=== PATIENT | male | born 1940 | race Caucasian/White ===

== ENCOUNTER 2016-10-08 12:11 | Inpatient (IN) | payer MEDICARE, BC ==
[~2016-10-08] VITALS: Ht 172.7 cm; Wt 75.4 kg
--- NOTE | 2016-10-10 11:51 | HP ---
ADMIT: 10/08/2016 RM/LOC: 415 [facility] MR#: [id number] [facility]#: [id number] [address] [facility] [address] [place], [place] [address] DUDLEYMELIA MORGAN[address] [facility] [address] [place] [address] History and Physical SEX: M AGE: 76 : 1940 DATE OF SERVICE: CHIEF COMPLAINT AND HISTORY OF PRESENT ILLNESS: Family brought him to our office this morning earlier in the day. His had discovered him out of bed on the floor. He had fallen getting up to bed. Since that time, he has been nonverbal, also described him as being weak. He was incontinent of urine. No fever. Apparently, he was at his usual state of health, admittedly not good, but usual state of health yesterday. I was concerned that he could have sustained a stroke since he was nonverbal for me, so he was taken to the emergency room where he was triaged to the stroke protocol. Dr. Gómez was kind enough to see him. I talked with him over the phone before and after this ER evaluation. The ER evaluation did not demonstrate any evidence of new infarct on his CT scan. He scored 4 on his stroke scale. Metabolic evaluation also did not display an obvious source of all this. He is diabetic. His blood sugar was 178. He was newly incontinent. His UA did not suggest any infection. He has had aspiration pneumonia in July. His chest x-ray did not show any evidence of pneumonia. He was admitted for acute mental status change. Since I saw him at noon and saw him again at about 5:00 p.m., his speech has improved significantly though he still has some comprehension difficulties with simple questions, and his speech is limited to single words and seems to still have some word-finding issues. PAST MEDICAL HISTORY: He has Parkinson's with dementia, type 2 diabetes, hypertension, hyperlipidemia. He was hospitalized for aspiration pneumonia and TIA, 2 separate hospitalizations last year at [facility]. After the aspiration pneumonia, he came here to rehab. He was at [facility] for roughly a month, and he is now with his who is his main caregiver. His brother helps out on some occasions. He is able to normally dress himself. She helps him with toileting and meals. He has a walker but does not consistently use it and does fall on occasion. MEDICATIONS: 1. Lantus 12 units at bedtime. 2. Plavix 75 mg daily. 3. Metformin ER 500 mg b.i.d. 4. Bisoprolol/HCTZ 10/6.25 every day. 5. Amlodipine/benazepril 10/40, one daily. 6. Simvastatin 20 mg at bedtime. 7. Aspirin 325 mg at bedtime. 8. Carbidopa/levodopa 25/100, three times daily. 9. Carbidopa/levodopa ER 25/100, one at bedtime. PRN medications include: 1. Claritin. 2. Flonase. 3. Loperamide. ALLERGIES: NONE THAT WE KNOW OF. ADMIT: 10/08/2016 RM/LOC: 415 [facility] MR#: [id number] [id number] [place], [place] [address]MELIA [address] [place] [address] History and Physical SEX: M AGE: 76 : 1940 SOCIAL HISTORY: As discussed above. FAMILY HISTORY: Unknown. REVIEW OF SYSTEMS: Unable from the patient, primarily those things we have noted in the HPI. No acute ear, nose, or throat issues that his can ascertain. Also, no vomiting. He tends to go between diarrhea and constipation. He has had normally good urine control. He does indicate to me he is not in pain anywhere. He has not had treatment for depression or anxiety. PHYSICAL EXAMINATION: GENERAL: Reveals an elderly male who appears his stated age. He is comfortable in the bed. He will, on request, sit up on the side of the bed under his own power. We have not attempted to ambulate him. He moves all extremities equally and there is no facial asymmetry. No apparent sensory difficulties on limited exam. He follows simple commands. He will answer simple questions yes or no, but he cannot identify simple objects such as a watch or my hand, and he cannot say his name. Speech is not obviously dysarthric, and he did swallow one sip of water without coughing or choking. VITAL SIGNS: Temp 96.9, pulse 90, respirations 16, BP 166/73. Rhythm is sinus with PVCs, possible old anteroseptal infarct. ENT: Teeth are in poor repair. No oral lesions are noted on limited exam. Hearing is satisfactory. There is no nasal discharge. EYES: Pupils equal and reactive to light. NECK: No masses. No tenderness. No bruits. HEART: Regular rhythm with occasional premature contraction. I do not hear murmurs. LUNGS: Clear anterior and posterior with normal respiratory effort. ABDOMEN: Soft. No masses or tenderness. No guarding or rebound. GENITALIA: Unremarkable to cursory exam. RECTAL: Not performed. EXTREMITIES: Upper extremities grossly normal but for increased rigidity. Lower extremities also increased rigidity. No edema in his lower extremities, and I can feel pulses in his feet. SKIN: No rashes. NEURO: As above plus the rigidity of his upper and lower extremities consistent with his Parkinson's. PSYCH: He is calm, no agitated behaviors, reasonably cooperative. IMPRESSION: 1. Recent acute mental status change, question transient ischemic attack or cerebrovascular accident or an encephalopathy from acute illness or possibly a posttraumatic head injury with his recent fall reported this morning. 2. Chronic Parkinson. ADMIT: 10/08/2016 RM/LOC: 415 [facility] MR#: [id number] [address] [address] MELIA DIAZ [address] [address] History and Physical SEX: M AGE: 76 : 1940 3. Chronic dementia. 4. Type 2 diabetes. 5. Chronic hypertension. 6. Recent aspiration pneumonia. No evidence of pneumonia on exam. PLAN: He is on telemetry. We will keep him n.p.o. until he is cleared by Speech Therapy other than give him his one aspirin tonight. We will try to obtain an MRI with contrast tomorrow, get his old records from [facility] regarding his TIA, monitor his sugars tonight with sliding scale insulin and adjust treatment as necessary. His signed papers for DNR/DNI, which we believe is consistent with his advance directives, since he has advanced incurable dementia in particular. Michael Barraza MD/ ester JOB #: [id number] CC: Michael Barraza, Attending Physician Michael Barraza, Family Physician
--- NOTE | 2016-10-21 08:22 | DS ---
ADMIT: 10/08/2016 RM/LOC: 415 [facility] MR#: [id number] 2620 [facility] [address] [place], [place] [address] JOEMELIA [address] [facility] [address] [place] [address] General Discharge Summary SEX: M AGE: 76 : 1940 ADMISSION DATE: 10/08/2016 DISCHARGE DATE: 10/11/2016 FINAL DIAGNOSES: 1. Acute lacunar cerebrovascular accident. 2. Improving, but not resolved aphasia secondary to #1. 3. Chronic Parkinson. 4. Chronic dementia. 5. Chronic hypertension. 6. Dyslipidemia. 7. Type 2 diabetes. BRIEF NARRATIVE: This is an elderly male brought by family to our clinic and eventually taken to the emergency room, should be triaged through the stroke code protocol. He had fallen earlier in the day. described him out of bed on the floor. Since that time, he had been nonverbal and was described as being weak, incontinent of urine. No fever. Apparently was at his usual state of health, admittedly not good but usual state of health the day before. Since I was concerned he could have sustained a stroke, he was taken to the emergency room by family car where he was triaged. Dr. Gómez was kind enough to see him and he called me with the evaluation, which did not demonstrate any evidence of a new infarct on a CT scan. He scored 4 on his stroke scale. Metabolic evaluation was unremarkable. He is diabetic, blood sugar was 178. He had had some incontinence, but his UA was clear. His chest x-ray was clear, and the patient had aspiration pneumonia, hospitalized in [place] in July of last year. He was having speech difficulties which improved significantly from when he was admitted around noon to 5 o'clock when I saw him for a second time of the day at the hospital ICU. PAST MEDICAL HISTORY: Notable for those diagnoses we have already listed above, and note that he had been at [facility] rehabbing from his pneumonia up until about a couple of weeks ago, and now he was home with his . PHYSICAL EXAMINATION: GENERAL: Exam by myself revealed an elderly male who is comfortable. He would follow certain commands, had obvious trouble with word naming. Speech was not obviously dysarthric, nor was he experiencing dysphagia. VITAL SIGNS: Temp 96.9, pulse 90, respirations 16, BP 166/73, sinus rhythm, with PVCs. NEUROLOGIC: Exam, but for the aphasia, showed no definite focal neurologic finding. He had rigidity of upper and lower extremities consistent with his Parkinson's. He was calm, not agitated. CARDIORESPIRATORY: Exam was unremarkable. DIAGNOSTIC DATA: Additional studies; of note, the MRI of the brain performed on October 09 showed an acute 5 mm lacunar infarct in the region of the right internal capsule and sparrow radiata, chronic small vessel ischemic changes, is being the main finding. Chest x-ray was unremarkable. Carotid ultrasound showed mild plaque. ADMIT: 10/08/2016 RM/LOC: 415 [facility] MR#: [id number] [address] [address] MELIA DIAZ [address] [place] [address] General Discharge Summary SEX: M AGE: 76 : 1940 HOSPITAL COURSE: The patient was admitted to Acute Care. Previously mentioned studies were obtained. Also, reviewed records from [facility] which showed he had prior echocardiogram which showed normal left ventricular function and no evidence of any shunt. He was maintained DNR/DNI per his medical decision maker 's request. Initial care was basically supportive. He was given one aspirin orally. He was cleared for swallowing, and diet was advanced on the second hospital day. Diabetes was monitored with sliding scale. His medications were removed the next hospital day. These included Plavix, amlodipine, Bystolic, simvastatin, Sinemet among others. He was deemed to be an appropriate candidate by IRU. He was followed by my partners in my absence on 10/10/2016. On 10/11/2016, he appeared clinically stable from the standpoint of his vital signs, sugars. His speech was much improved from admission but not 100% back to baseline. He said he was transferred to IRU on October 12. Meds were: 1. Aspirin 325 mg daily. 2. Lotrel 5/20 two caps daily. 3. Plavix 75 mg daily. 4. Sinemet t.i.d. and at bedtime. 5. Ziac 10 mg daily. 6. Zocor 20 mg at bedtime. 7. He will be on Lovenox daily for DVT prophylaxis, very low-dose Novolin sliding scale correction insulin. PROGNOSIS: Guarded because of all his morbidities. FOLLOWUP: Followup by myself would be pending his dismissal from the IRU. Greater than 30 minutes were spent in discharge activities both on the day of dismissal and preparing this clinical resume. Michael Barraza MD/ ester JOB #: [id number] CC: Michael Barraza MD, Attending Physician Michael Barraza MD, Family Physician
[2016-10-26] MEDS ORDERED: PLAVIX75 MG PO (16:52)
[2016-10-26] MEDS ORDERED: LOTREL 10-40 M1 EACH PO (16:52)
[2016-10-26] MEDS ORDERED: ASA325 MG PO (16:52)
[2016-10-26] MEDS ORDERED: ZIAC 55 MG PO (16:53)
[2016-10-26] MEDS ORDERED: ZOCOR DPS20 MG PO (16:53)
[2016-10-26] MEDS ORDERED: VITAMIN B-12500 MCG PO (16:53)
[2016-10-26] MEDS ORDERED: ZOLOFT100 MG PO (16:53)
[2016-10-26] MEDS ORDERED: VITAMIN D31000 UNIT PO (16:53)
[2016-10-26] MEDS ORDERED: SINEMET 25-1001 EACH PO (16:54)
[2016-10-26] MEDS ORDERED: GLUCOPHAGE XR500 MG PO (16:54)
[2016-10-26] MEDS ORDERED: SINEMET CR 25-1 EACH PO (16:54)
[2016-10-26] MEDS ORDERED: FLOMAX DPS0.4 MG PO (16:54)
[2016-10-26] MEDS ORDERED: LANTUS100 UNITS/ SQ (16:54)
[2016-10-26] MEDS ORDERED: IMODIUM DPS2 MG PO (16:55)
[2016-10-26] MEDS ORDERED: FLUTICASONE PRO16 GM NS (16:55)
[2016-10-26] MEDS ORDERED: CLARITIN10 M2 PO (16:56)
--- NOTE | 2016-10-26 23:44 | ER ---
ADMIT: 10/08/2016 RM/LOC: 415 [facility] MR#: [id number] 2620 [facility] [address] [place], [place] [address] MELIA DIAZ [address] [facility] [address] [place] [address] Emergency Room Report SEX: M AGE: 76 : 1940 DATE: 10/08/2016 ADDENDUM: See T-sheet for complete H and P. A 76-year-old gentleman with history of dementia and Parkinson's presents to the ER in private vehicle. [facility] where would be their first visit today for the patient not acting right. [facility] thought that there was possibility this could be a stroke and wanted him to have further evaluation, so they were told to come directly to the ER. The is the primary historian and she states that he seemed somewhat anxious 2 days ago but yesterday seemed more tired. She states he got up numerous times during the evening last night and then she heard a thump and went to check on him around 8 in the morning and he was lying on the floor. From what she can tell, he had not injured himself during the fall and she called the patient's brother and they were able to get him up and he seemed less responsive since the fall, so they brought him in to be evaluated. They did not notice any slurred speech, but he was less interactive and less talkative. They state he just seemed like he was more weak overall, but no focal weakness that they describe. He does have a history of diabetes, hypertension, dementia, Parkinson's, and previous TIA. PHYSICAL EXAM: Shows no focal findings that I can appreciate. He can move all extremities. Strength appears equal. Sensation is intact. I do not see any slurred speech. There is no facial droop. Pupils are equal. He is quite tired but is arousable to minor stimulation. His stroke scale is a 4. He is also not within the window for possible tPA due to the timing and onset which is unknown, exact onset, but was at least 8 a.m. LABORATORY STUDIES: CBC showed a white count of 12.4, otherwise negative. Potassium is slightly low at 3.4. Lactic acid was normal at 1.8, bedside glucose is 186. EKG was done, which showed sinus rhythm, no signs of ST- elevation or acute OK and did have some PVCs. CT head showed nothing acute, but did have age-related changes. While he was in the ER, his status is essentially unchanged and his vital signs were stable. This does not appear to be a stroke at this time with regard to any sort of focal findings. I did contact Dr. Barraza, and will be admitting the patient for mental status changes and dementia for further workup. Handy Gómez MD/ ester JOB #: [id number] CC: Michael Barraza MD, Attending Physician Michael Barraza MD, Family Physician
[2017-03-27] MEDS ORDERED: OMNICEF DPS300 MG PO (14:56)
[2017-03-27] MEDS ORDERED: ACCU-CHEK1 EAC1 (14:57)
[2017-03-27] MEDS ORDERED: NOVOLOG100 UNIT/2 SQ (15:00)
[2017-03-27] MEDS ORDERED: GLUTOSE 1537.5 GM PO (15:01)
[2017-03-27] MEDS ORDERED: ATIVAN-DPS0.5 MG PO (15:01)
[2017-03-27] MEDS ORDERED: COLACE-DPS100 MG PO (15:01)
[2017-03-27] MEDS ORDERED: GLUCAGON HCL1 MG IM (15:02)
[2017-03-27] MEDS ORDERED: TYLENOL DPS325 MG PO (15:02)
== END 2016-10-11 11:42 | disposition short-term general hospital (02) | DRG 66 ==
LOC: ER 12:11 → 4PCU 14:15
PROVIDERS: ADMIT Family Medicine
DX: I63.9 Cerebral infarction, unspecified (principal); G20 Parkinson's disease; F02.80 Dementia in other diseases classified elsewhere, unspecified severity, without behavioral disturbance, psychotic disturbance, mood disturbance, and anxiety; R47.01 Aphasia; E11.9 Type 2 diabetes mellitus without complications; I10 Essential (primary) hypertension; E78.5 Hyperlipidemia, unspecified; Z86.73 Personal history of transient ischemic attack (TIA), and cerebral infarction without residual deficits; Z79.4 Long term (current) use of insulin; Z79.82 Long term (current) use of aspirin; Z91.81 History of falling; Z66 Do not resuscitate

== ENCOUNTER 2016-10-11 10:51 | Inpatient (IN) | payer MEDICARE, BC ==
[~2016-10-11] VITALS: Ht 172.7 cm; Wt 76.7 kg
[2016-10-26] MEDS ORDERED: ASA325 MG PO (16:52)
[2016-10-26] MEDS ORDERED: LOTREL 10-40 M1 EACH PO (16:52)
[2016-10-26] MEDS ORDERED: PLAVIX75 MG PO (16:52)
[2016-10-26] MEDS ORDERED: VITAMIN B-12500 MCG PO (16:53)
[2016-10-26] MEDS ORDERED: VITAMIN D31000 UNIT PO (16:53)
[2016-10-26] MEDS ORDERED: ZIAC 55 MG PO (16:53)
[2016-10-26] MEDS ORDERED: ZOLOFT100 MG PO (16:53)
[2016-10-26] MEDS ORDERED: ZOCOR DPS20 MG PO (16:53)
[2016-10-26] MEDS ORDERED: FLOMAX DPS0.4 MG PO (16:54)
[2016-10-26] MEDS ORDERED: SINEMET 25-1001 EACH PO (16:54)
[2016-10-26] MEDS ORDERED: SINEMET CR 25-1 EACH PO (16:54)
[2016-10-26] MEDS ORDERED: GLUCOPHAGE XR500 MG PO (16:54)
[2016-10-26] MEDS ORDERED: LANTUS100 UNITS/ SQ (16:54)
[2016-10-26] MEDS ORDERED: FLUTICASONE PRO16 GM NS (16:55)
[2016-10-26] MEDS ORDERED: IMODIUM DPS2 MG PO (16:55)
[2016-10-26] MEDS ORDERED: CLARITIN10 M2 PO (16:56)
--- NOTE | 2016-11-27 09:48 | DS ---
ADMIT: 10/11/2016 RM/LOC: 613 [facility] MR#: [id number] 2620 [facility] [address] [place], [place] [address] JEO MELIA Hilary [address] [place] [address] General Discharge Summary SEX: M AGE: 76 : 1940 ADMISSION DATE: 10/11/2016 DISCHARGE DATE: 10/25/2016 DISCHARGE DIAGNOSES: Stroke, 01.1, left body involvement, right brain, right internal capsule and sparrow radiata, I63.9, cerebral infarction, date of onset 10/08/2016, comorbid conditions per initial H and P. Other diagnoses per hospital course below. HOSPITAL COURSE: Please see my initial H and P for details prior to transfer to the IRU. Sliding scale insulin continued. Lovenox was continued for DVT prophylaxis. Pain and bowel regimen was adjusted. Aspirin decreased to 81 mg while on Lovenox. Zocor adjusted to limit risk of insomnia. Metformin was restarted per his home routine. Lab was monitored regularly. PVRs normal. Potassium replaced. B12 low, replaced with IM injections and MMA to confirm, metformin increased to 850 mg. Lovenox discontinued as he was ambulating good enough distance daily to prevent DVT. Aspirin increased back to 325 mg. Creatinine clearance 61 mL/minute. Glucophage decreased to 500 mg. Levemir started 6 units 8 a.m. and 8 p.m. Vitamin D deficiency replaced. DNR/DNI decision on 10/16/2016. UA with micro. Levemir increased. Metformin increased. Renal function was better. Accu-Cheks q.a.c. at bedtime, but no sliding scale insulin at bedtime due to hyperglycemia. Flomax started for some BPH. Ziac decreased due to hypertension controlled. MMA did come back high confirming B12 deficiency. Timely voids for urinary incontinence. ADA diet was ensured. Blood sugars were well controlled. Levemir increased to 10 units. Zoloft started for depression. Metformin decreased to 500 mg. Levemir increased to 12 units. B12 changed to p.o. Metformin was decreased due to diarrhea and need for insulin anyway. Dietitian discussed diabetic diet with the patient. Sliding scale insulin discontinued, but continued Accu- Cheks. Zoloft increased to 75 mg. Carb is limited with breakfast. Dietitian followed to optimize nutrition. Pharmacy followed to optimize medication management. The patient was medically stable at the time of discharge. Please see IRU interdisciplinary discharge summary for details regarding progress in therapy. DISCHARGE DISPOSITION: Home with . DISCHARGE MEDICATIONS: Please see discharge med rec. He was back on his home routine by discharge. FOLLOWUP: Dr. Barraza on 10/31/2016. John Shah MD/ ester JOB #: [id number] CC:
[2017-03-27] MEDS ORDERED: OMNICEF DPS300 MG PO (14:56)
[2017-03-27] MEDS ORDERED: ACCU-CHEK1 EAC1 (14:57)
[2017-03-27] MEDS ORDERED: NOVOLOG100 UNIT/2 SQ (15:00)
[2017-03-27] MEDS ORDERED: COLACE-DPS100 MG PO (15:01)
[2017-03-27] MEDS ORDERED: ATIVAN-DPS0.5 MG PO (15:01)
[2017-03-27] MEDS ORDERED: GLUTOSE 1537.5 GM PO (15:01)
[2017-03-27] MEDS ORDERED: TYLENOL DPS325 MG PO (15:02)
[2017-03-27] MEDS ORDERED: GLUCAGON HCL1 MG IM (15:02)
== END 2016-10-25 11:50 | disposition home or self-care (01) | DRG 57 ==
LOC: 6IRU 11:35
PROVIDERS: ADMIT Physical Medicine & Rehabilitation
PROC: F06Z6ZZ Communicative/Cognitive Integration Skills Treatment (ICD-10-PCS; principal; 2016-10-11)
PROC: F07Z9FZ Gait Training/Functional Ambulation Treatment using Assistive, Adaptive, Supportive or Protective Equipment (ICD-10-PCS; principal; 2016-10-11)
PROC: F08Z2FZ Grooming/Personal Hygiene Treatment using Assistive, Adaptive, Supportive or Protective Equipment (ICD-10-PCS; principal; 2016-10-11)
DX: I69.391 Dysphagia following cerebral infarction (principal); E11.65 Type 2 diabetes mellitus with hyperglycemia; F03.90 Unspecified dementia, unspecified severity, without behavioral disturbance, psychotic disturbance, mood disturbance, and anxiety; I69.354 Hemiplegia and hemiparesis following cerebral infarction affecting left non-dominant side; I69.310 Attention and concentration deficit following cerebral infarction; R13.10 Dysphagia, unspecified; G20 Parkinson's disease; E53.8 Deficiency of other specified B group vitamins; E55.9 Vitamin D deficiency, unspecified; D64.9 Anemia, unspecified; E87.6 Hypokalemia; K59.00 Constipation, unspecified; R45.1 Restlessness and agitation; N40.1 Benign prostatic hyperplasia with lower urinary tract symptoms; R35.1 Nocturia; R32 Unspecified urinary incontinence; E78.5 Hyperlipidemia, unspecified; I10 Essential (primary) hypertension; F32.9 Major depressive disorder, single episode, unspecified; Z66 Do not resuscitate; Z79.4 Long term (current) use of insulin

== ENCOUNTER 2016-11-26 10:56 | Emergency (ER) | payer MEDICARE, BC ==
[~2016-11-26 10:56] MED LIST: ASA325 MG PO; CLARITIN10 M2 PO; FLOMAX DPS0.4 MG PO; FLUTICASONE PRO16 GM NS; GLUCOPHAGE XR500 MG PO; IMODIUM DPS2 MG PO; LANTUS100 UNITS/ SQ; LOTREL 10-40 M1 EACH PO; PLAVIX75 MG PO; SINEMET 25-1001 EACH PO; SINEMET CR 25-1 EACH PO; VITAMIN B-12500 MCG PO; VITAMIN D31000 UNIT PO; ZIAC 55 MG PO; ZOCOR DPS20 MG PO; ZOLOFT100 MG PO
--- NOTE | 2016-12-02 21:38 | ER ---
ADMIT: 11/26/2016 RM/LOC: ER [facility] MR#: [id number] [address] [place], [place] [address] MELIA DIAZ [address] [place] [address] Emergency Room Report SEX: M AGE: 76 : 1940 DATE: 11/26/2016 See T-sheet for complete H and P. ADDENDUM: A 76-year-old male, comes in with symptoms of being less interactive with his , seems a little sleepy. He does have a history of CVA in the past. He has no focal complaints per . He does have dementia and Parkinson's. On my exam, I see no focal findings, and the patient is essentially at his baseline per when I speak with him. I did do CBC and CMP, which really had no significant findings. Bedside glucose was 206. A CT head showed nothing acute, did show old infarct. The patient is at his baseline at this time. I feel comfortable sending him home. I do think this is likely related to his Parkinson's and dementia, and I spoke to his primary care physician, discussed the case. He is to follow up with Dr. Barraza as needed and family will take the patient home in stable condition and return to the ER for any other concerning symptoms, and they were given signs of stroke they can look out for. DIAGNOSES: 1. Parkinson's. 2. Dementia. Handy Gómez MD/ patyl JOB #: [id number] CC: Handy Gómez MD, Attending Physician Michael Barraza MD, Family Physician
[2017-03-27] MEDS ORDERED: OMNICEF DPS300 MG PO (14:56)
[2017-03-27] MEDS ORDERED: ACCU-CHEK1 EAC1 (14:57)
[2017-03-27] MEDS ORDERED: NOVOLOG100 UNIT/2 SQ (15:00)
[2017-03-27] MEDS ORDERED: COLACE-DPS100 MG PO (15:01)
[2017-03-27] MEDS ORDERED: GLUTOSE 1537.5 GM PO (15:01)
[2017-03-27] MEDS ORDERED: ATIVAN-DPS0.5 MG PO (15:01)
[2017-03-27] MEDS ORDERED: TYLENOL DPS325 MG PO (15:02)
[2017-03-27] MEDS ORDERED: GLUCAGON HCL1 MG IM (15:02)
== END 2016-11-26 13:20 | disposition home or self-care (01) ==
LOC: ER 10:56
DX: G20 Parkinson's disease (principal); F02.80 Dementia in other diseases classified elsewhere, unspecified severity, without behavioral disturbance, psychotic disturbance, mood disturbance, and anxiety; E11.9 Type 2 diabetes mellitus without complications; Z86.73 Personal history of transient ischemic attack (TIA), and cerebral infarction without residual deficits; Z79.4 Long term (current) use of insulin; Z79.01 Long term (current) use of anticoagulants; Z79.899 Other long term (current) drug therapy

== ENCOUNTER 2017-01-09 11:14 | Emergency (ER) | payer MEDICARE, BC ==
--- NOTE | 2017-01-15 23:42 | ER ---
ADMIT: 01/09/2017 RM/LOC: ER [facility] MR#: [id number] [address] [address] DUDLEYMELIA [address] [place] [address] Emergency Room Report SEX: M AGE: 76 : 1940 DATE: 01/09/2017 Please refer to my T-sheet for complete H and P. Briefly, the patient is a 76-year-old who comes in with multiple falls, just weakness. He has had a very complex past medical history and more recently increased problems with falling at home. He has a known history of Parkinson's dementia. He has been in the hospital, just recently discharged home, was back in our ER Saturday. He was in to see Dr. Barraza Saturday and back here today. He has had a MRI, CT, and lab work. Nothing has helped. He is supposed to walk with a walker. He does not always and apparently he complains at times he has numbness in his legs. He fell again today. PHYSICAL EXAMINATION: VITAL SIGNS: His blood pressure is 167/83, pulse 74, respirations 15, temp 97.8, and saturating 96%. GENERAL: No acute distress. HEENT: Grossly normal. LUNGS: Clear. HEART: Regular. ABDOMEN: Soft. SKIN: No rash. NEURO: He is alert. He is a little slow, not too confused at this time. Nonfocal. No numbness. Gait was a short based kind of stooping, slow with a walker and unsteady. EMERGENCY ROOM COURSE: Here we repeated a CT of his head, it showed no acute changes. His EKG was sinus rhythm, rate 64, no changes. CBC normal except for hemoglobin 13.6. Chemistries normal except potassium 3 and glucose 184, I had Social Work come down. I talked to Dr. Barraza, reviewed through them. They are not interested in placement at this time. They wanted to get their ADMIT: 01/09/2017 RM/LOC: [facility] MR#: [id number] [address] [address] MELIA DIAZ [address] [place] [address] Emergency Room Report SEX: M AGE: 76 : 1940 finances in order. However, I talked to him about the risks of him falling and they were still wanting to go home and will follow up. Hopefully increase the plan of getting him placed. He has Dr. Barraza mentioned when I called him. ASSESSMENT: 1. Weakness. 2. Falls. 3. Parkinson's. 4. Mild hypokalemia. PLAN: Return if worse. Follow up with Dr. Barraza. Consider higher level of care. Alcides Mckeon MD/ patyl JOB #: [id number] CC: Alcides Mckeon MD, Attending Physician Michael Barraza MD, Family Physician
[2017-03-27] MEDS ORDERED: OMNICEF DPS300 MG PO (14:56)
[2017-03-27] MEDS ORDERED: ACCU-CHEK1 EAC1 (14:57)
[2017-03-27] MEDS ORDERED: NOVOLOG100 UNIT/2 SQ (15:00)
[2017-03-27] MEDS ORDERED: COLACE-DPS100 MG PO (15:01)
[2017-03-27] MEDS ORDERED: GLUTOSE 1537.5 GM PO (15:01)
[2017-03-27] MEDS ORDERED: ATIVAN-DPS0.5 MG PO (15:01)
[2017-03-27] MEDS ORDERED: TYLENOL DPS325 MG PO (15:02)
[2017-03-27] MEDS ORDERED: GLUCAGON HCL1 MG IM (15:02)
== END 2017-01-09 13:47 | disposition home or self-care (01) ==
LOC: ER 11:14
DX: R53.1 Weakness (principal); G20 Parkinson's disease; E87.6 Hypokalemia; E11.9 Type 2 diabetes mellitus without complications; E78.5 Hyperlipidemia, unspecified; I10 Essential (primary) hypertension

== ENCOUNTER → 2017-02-12 | Outpatient (CLI) | payer MEDICARE, BC ==
[~2017-02-12] MED LIST changes: +ACCU-CHEK1 EAC1; +ATIVAN-DPS0.5 MG PO; +COLACE-DPS100 MG PO; +GLUCAGON HCL1 MG IM; +GLUTOSE 1537.5 GM PO; +NOVOLOG100 UNIT/2 SQ; +OMNICEF DPS300 MG PO; +TYLENOL DPS325 MG PO
== END | disposition home or self-care (01) ==
LOC: RAD.S 11:08
DX: R13.12 Dysphagia, oropharyngeal phase (principal); R05 Cough